=== PATIENT | male | born 1990 | race Caucasian/White ===

== ENCOUNTER 2017-06-09 23:20 | Emergency (ER) | payer OTHER ==
[~2017-06-09] VITALS: Ht 175.3 cm; Wt 86.4 kg
[2017-06-09 23:28] VITALS: TEMP 98.3
[2017-06-10] MEDS ORDERED: ZOFRAN 4MG T4 MG/TAB PO (01:07)
[2017-06-10] MEDS ORDERED: ANTIVERT 25MG25 MG PO (01:07)
[2017-06-10 01:22] VITALS: BP 122/76; PULSE 64
== END 2017-06-10 01:23 | disposition home or self-care (01) ==
LOC: COL.ER 23:20
DX: R42 Dizziness and giddiness (principal); R51 Headache
CPT/HCPCS: J0780; J1200